=== PATIENT | female | born 1990 | race Caucasian/White ===

== ENCOUNTER → 2017-06-06 | Outpatient (CLI) | payer MEDICAID, OTHER ==
[2017-06-06 11:13] LABS: BASO % 0.5 % (0.0-1.0); EOS # 0.1 10^3/uL (0.0-0.50); EOS % 2.7 % (0.0-3.0); HEMATOCRIT 36.1 % (36.0-47.0); HEMOGLOBIN 12.1 g/dl (12.0-16.0); IMMATURE GRANULOCYTE % 0.2 % (0-0); LYMPH # 2.1 10^3/uL (1.5-6.5); LYMPH % 51.1 % (24.0-44.0); MEAN CORPUSCULAR HEMOGLOBIN 31.3 pg (27.0-33.0); MEAN CORPUSCULAR HGB CONC 33.5 g/dl (32.0-36.5); MEAN CORPUSCULAR VOLUME 93.5 fl (80.0-96.0); MONO # 0.3 10^3/uL (0.0-0.8); MONO % 6.7 % (0.0-5.0); NEUTROPHILS # 1.6 10^3/uL (1.8-7.7); NEUTROPHILS % 38.8 % (36.0-66.0); PLATELET COUNT, AUTOMATED 199 10^3/uL (150-450); RED BLOOD COUNT 3.86 10^6/uL (4.00-5.40); RED CELL DISTRIBUTION WIDTH 14.3 % (11.5-14.5)
[2017-06-06 11:20] LABS: AMORPHOUS SEDIMENT MODERATE (NEGATIVE); APPEARANCE, URINE TURBID (CLEAR); BACTERIA, URINE AUTO NEGATIVE (NEGATIVE); BILIRUBIN, URINE AUTO NEGATIVE (NEGATIVE); BLOOD, URINE BLOOD NEGATIVE (NEGATIVE); COLOR, URINE YELLOW (YELLOW); GLUCOSE, URINE (UA) AUTO NEGATIVE (NEGATIVE); KETONE, URINE AUTO NEGATIVE (NEGATIVE); LEUKOCYTE ESTERASE, URINE AUTO NEGATIVE (NEGATIVE); NITRITE, URINE AUTO NEGATIVE (NEGATIVE); PROTEIN, URINE AUTO NEGATIVE (NEGATIVE); RBC, URINE AUTO 2 /HPF (0-3); SPECIFIC GRAVITY URINE AUTO 1.015 (1.002-1.035); SQUAMOUS EPITHELIAL CELL UR AU 2 /HPF (0-6); UROBILINOGEN, URINE AUTO 0.2 mg/dL (0.0-2.0); WBC, URINE AUTO 1 /HPF (0-3)
[2017-06-06 11:34] LABS: ALBUMIN 3.9 GM/DL (3.2-5.2); ALBUMIN/GLOBULIN RATIO 1.05 (1.00-1.93); ALKALINE PHOSPHATASE 94 U/L (45-117); ALT/SGPT 49 U/L (12-78); ANION GAP 7 MEQ/L (8-16); AST/SGOT 24 U/L (7-37); BILIRUBIN,TOTAL 0.5 MG/DL (0.2-1.0); BLOOD UREA NITROGEN 16 MG/DL (7-18); CARBON DIOXIDE LEVEL 27 MEQ/L (21-32); CHLORIDE LEVEL 109 MEQ/L (98-107); CREATININE FOR GFR 0.63 MG/DL (0.55-1.30); GLOMERULAR FILTRATION RATE > 60.0 (>60); GLUCOSE, FASTING 76 MG/DL (70-100); SODIUM LEVEL 143 MEQ/L (136-145); TOTAL PROTEIN 7.6 GM/DL (6.4-8.2)
[2017-06-06 11:55] LABS: HEPATITIS B SURFACE ANTIGEN NEGATIVE (NEGATIVE)
[2017-06-06 12:21] LABS: HEPATITIS B CORE ANTIBODY IGM NEGATIVE (NEGATIVE)
[2017-06-06 12:25] LABS: HEPATITIS A ANTIBODY IGM NEGATIVE (NEGATIVE)
[2017-06-06 12:48] LABS: HEPATITIS C VIRUS ABY INDEX > 11.0 INDEX (<0.8)
== END ==
LOC: M LAB 09:53
DX: Z79.891 Long term (current) use of opiate analgesic (principal)
CPT/HCPCS: 80053

== ENCOUNTER 2017-07-01 18:03 | Inpatient (IN) | payer MEDICAID ==
[2017-07-01 18:37] LABS: HEMATOCRIT 35.5 % (36.0-47.0); MEAN CORPUSCULAR HEMOGLOBIN 32.1 pg (27.0-33.0); MEAN CORPUSCULAR HGB CONC 33.8 g/dl (32.0-36.5); MEAN CORPUSCULAR VOLUME 94.9 fl (80.0-96.0); PLATELET COUNT, AUTOMATED 191 10^3/uL (150-450); RED BLOOD COUNT 3.74 10^6/uL (4.00-5.40); RED CELL DISTRIBUTION WIDTH 13.2 % (11.5-14.5); WHITE BLOOD COUNT 4.1 10^3/uL (4.0-10.0)
[2017-07-01 18:49] LABS: CONTROL LINE HCG INT CTR LINE PRESENT; HCG, SERUM QUALITATIVE NEGATIVE (NEGATIVE)
[2017-07-01 18:55] LABS: AMPHETAMINES LEVEL URINE NEGATIVE (NEGATIVE); BARBITURATES URINE NEGATIVE (NEGATIVE); BENZODIAZEPINES URINE NEGATIVE (NEGATIVE); CANNABINOIDS URINE NEGATIVE (NEGATIVE); COCAINE METABOLITE URINE NEGATIVE (NEGATIVE); METHADONE URINE NEGATIVE (NEGATIVE); OPIATES URINE NEGATIVE (NEGATIVE); PHENCYCLIDINE URINE NEGATIVE (NEGATIVE)
[2017-07-01 19:06] LABS: ALBUMIN 3.9 GM/DL (3.2-5.2); ALKALINE PHOSPHATASE 122 U/L (45-117); ALT/SGPT 191 U/L (12-78); ANION GAP 6 MEQ/L (8-16); AST/SGOT 77 U/L (7-37); BILIRUBIN,DIRECT 0.1 MG/DL (0.0-0.2); BILIRUBIN,TOTAL 0.4 MG/DL (0.2-1.0); BLOOD UREA NITROGEN 16 MG/DL (7-18); CALCIUM LEVEL 8.4 MG/DL (8.5-10.1); CARBON DIOXIDE LEVEL 26 MEQ/L (21-32); CHLORIDE LEVEL 111 MEQ/L (98-107); CREATININE FOR GFR 0.69 MG/DL (0.55-1.30); ETHYL ALCOHOL (ETHANOL) < 0.003 % (0.000-0.010); GLOMERULAR FILTRATION RATE > 60.0 (>60); GLUCOSE, FASTING 80 MG/DL (70-100); POTASSIUM SERUM 3.5 MEQ/L (3.5-5.1); SALICYLATE LEVEL < 1.7 MG/DL (5.0-30.0); SODIUM LEVEL 143 MEQ/L (136-145); TOTAL PROTEIN 7.8 GM/DL (6.4-8.2)
[2017-07-01 19:07] LABS: ACETAMINOPHEN LEVEL < 2.0 UG/ML (10.0-30.0)
[2017-07-01] MEDS ORDERED: MOM 30ML SUSPENSION UDC PO (22:30)
[2017-07-01] MEDS ORDERED: MAALOX 30 ML SUSP *UDC PO (22:30)
[2017-07-01] MEDS: IBUPROFEN 400 MG TAB PO (22:33)
[2017-07-01] MEDS: TOPIRAMATE (TopAMAX) 100 MG TAB PO (22:34)
[2017-07-01] MEDS: PRAZOSIN 1 MG CAP PO (22:34)
[2017-07-01] MEDS: traZODone 50 MG TAB PO (22:34)
[2017-07-01] MEDS: BENZTROPINE 0.5 MG TAB PO (22:35)
[2017-07-02] MEDS: BENZTROPINE 0.5 MG TAB PO ×2 (08:25→22:34)
[2017-07-02] MEDS: ARIPiprazole 10 MG TAB PO (08:25)
[2017-07-02] MEDS: PARoxetine 20 MG TAB PO (08:25)
[2017-07-02] MEDS: PROPRANOLOL 10 MG TAB PO ×2 (08:25→22:35)
[2017-07-02] MEDS: NICOTINE 21MG/24HR 1 EA TRANSDERMAL TD (08:26)
[2017-07-02] MEDS: rOPINIRole 1MG TAB PO ×2 (13:22→22:35)
[2017-07-02] MEDS: MULTIVITAMINS/MINERALS THERAP 1 TAB PO (13:23)
[2017-07-02 14:12] LABS: ALBUMIN 3.9 GM/DL (3.2-5.2); ALBUMIN/GLOBULIN RATIO 0.98 (1.00-1.93); ALKALINE PHOSPHATASE 117 U/L (45-117); ALT/SGPT 209 U/L (12-78); ANION GAP 7 MEQ/L (8-16); AST/SGOT 90 U/L (7-37); BILIRUBIN,DIRECT 0.1 MG/DL (0.0-0.2); BILIRUBIN,TOTAL 0.7 MG/DL (0.2-1.0); BLOOD UREA NITROGEN 15 MG/DL (7-18); CALCIUM LEVEL 8.9 MG/DL (8.5-10.1); CARBON DIOXIDE LEVEL 26 MEQ/L (21-32); CHLORIDE LEVEL 108 MEQ/L (98-107); CREATININE FOR GFR 0.73 MG/DL (0.55-1.30); GLOMERULAR FILTRATION RATE > 60.0 (>60); GLUCOSE, FASTING 89 MG/DL (70-100); POTASSIUM SERUM 4.2 MEQ/L (3.5-5.1); SODIUM LEVEL 141 MEQ/L (136-145); TOTAL PROTEIN 7.9 GM/DL (6.4-8.2)
[2017-07-02] MEDS ORDERED: traZODone 50 MG TAB PO (14:30)
[2017-07-02] MEDS: QUEtiapine FUMARATE 100 MG TAB PO (22:34)
[2017-07-02] MEDS: TOPIRAMATE (TopAMAX) 25 MG TAB PO (22:35)
[2017-07-02] MEDS: PRAZOSIN 1 MG CAP PO (22:36)
[2017-07-02] MEDS: IBUPROFEN 400 MG TAB PO (22:37)
[2017-07-03 07:50] LABS: ALBUMIN 3.7 GM/DL (3.2-5.2); ALBUMIN/GLOBULIN RATIO 0.95 (1.00-1.93); ALKALINE PHOSPHATASE 110 U/L (45-117); ALT/SGPT 190 U/L (12-78); ANION GAP 10 MEQ/L (8-16); AST/SGOT 76 U/L (7-37); BILIRUBIN,TOTAL 0.6 MG/DL (0.2-1.0); BLOOD UREA NITROGEN 17 MG/DL (7-18); CALCIUM LEVEL 8.3 MG/DL (8.5-10.1); CARBON DIOXIDE LEVEL 23 MEQ/L (21-32); CHLORIDE LEVEL 110 MEQ/L (98-107); CREATININE FOR GFR 0.76 MG/DL (0.55-1.30); GLOMERULAR FILTRATION RATE > 60.0 (>60); GLUCOSE, FASTING 94 MG/DL (70-100); POTASSIUM SERUM 3.5 MEQ/L (3.5-5.1); SODIUM LEVEL 143 MEQ/L (136-145); TOTAL PROTEIN 7.6 GM/DL (6.4-8.2)
[2017-07-03] MEDS: PROPRANOLOL 10 MG TAB PO ×2 (08:11→21:43)
[2017-07-03] MEDS: rOPINIRole 1MG TAB PO ×2 (08:11→21:41)
[2017-07-03] MEDS: NICOTINE 21MG/24HR 1 EA TRANSDERMAL TD (08:11)
[2017-07-03] MEDS: MULTIVITAMINS/MINERALS THERAP 1 TAB PO (08:12)
[2017-07-03] MEDS: BENZTROPINE 0.5 MG TAB PO ×2 (08:12→21:41)
[2017-07-03] MEDS: PARoxetine 20 MG TAB PO (08:12)
[2017-07-03] MEDS ORDERED: traZODone 50 MG TAB PO (10:45)
[2017-07-03] MEDS: VITAMIN B COMPLEX/VIT C CAP PO (12:05)
[2017-07-03] MEDS: hydrOXYzine 25 MG TAB PO (14:26)
[2017-07-03] MEDS: QUEtiapine FUMARATE 50 MG TAB PO (21:42)
[2017-07-03] MEDS: TOPIRAMATE (TopAMAX) 25 MG TAB PO (21:42)
[2017-07-03] MEDS: traZODone 50 MG TAB PO (21:42)
[2017-07-03] MEDS: PRAZOSIN 1 MG CAP PO (21:43)
[2017-07-04] MEDS: VITAMIN B COMPLEX/VIT C CAP PO (08:30)
[2017-07-04] MEDS: rOPINIRole 1MG TAB PO ×2 (08:30→21:17)
[2017-07-04] MEDS: MULTIVITAMINS/MINERALS THERAP 1 TAB PO (08:30)
[2017-07-04] MEDS: NICOTINE 21MG/24HR 1 EA TRANSDERMAL TD (08:30)
[2017-07-04] MEDS: BENZTROPINE 0.5 MG TAB PO ×2 (08:30→21:17)
[2017-07-04] MEDS: PROPRANOLOL 10 MG TAB PO ×3 (08:31→21:18)
[2017-07-04] MEDS: PARoxetine 20 MG TAB PO (08:31)
[2017-07-04] MEDS: hydrOXYzine 25 MG TAB PO ×2 (09:43→14:09)
[2017-07-04] MEDS: IBUPROFEN 400 MG TAB PO (14:09)
[2017-07-04] MEDS: LURASIDONE HCL 40 MG TAB (LATUDA) PO (17:59)
[2017-07-04] MEDS: QUEtiapine FUMARATE 50 MG TAB PO (21:17)
[2017-07-04] MEDS: PRAZOSIN 1 MG CAP PO (21:17)
[2017-07-04] MEDS: traZODone 50 MG TAB PO (21:18)
[2017-07-04] MEDS: TOPIRAMATE (TopAMAX) 25 MG TAB PO (21:20)
[2017-07-05 06:38] LABS: HEMATOCRIT 34.3 % (36.0-47.0); HEMOGLOBIN 11.9 g/dl (12.0-16.0); MEAN CORPUSCULAR HEMOGLOBIN 32.5 pg (27.0-33.0); MEAN CORPUSCULAR HGB CONC 34.7 g/dl (32.0-36.5); MEAN CORPUSCULAR VOLUME 93.7 fl (80.0-96.0); PLATELET COUNT, AUTOMATED 182 10^3/uL (150-450); RED BLOOD COUNT 3.66 10^6/uL (4.00-5.40); RED CELL DISTRIBUTION WIDTH 13.1 % (11.5-14.5); WHITE BLOOD COUNT 4.6 10^3/uL (4.0-10.0)
[2017-07-05 06:52] LABS: AMMONIA 40 uMOL/L (<32)
[2017-07-05] MEDS: hydrOXYzine 25 MG TAB PO (06:56)
[2017-07-05 07:13] LABS: ALBUMIN 3.6 GM/DL (3.2-5.2); ALBUMIN/GLOBULIN RATIO 0.97 (1.00-1.93); ALKALINE PHOSPHATASE 108 U/L (45-117); ALT/SGPT 190 U/L (12-78); ANION GAP 10 MEQ/L (8-16); AST/SGOT 73 U/L (7-37); BILIRUBIN,TOTAL 0.4 MG/DL (0.2-1.0); BLOOD UREA NITROGEN 20 MG/DL (7-18); CALCIUM LEVEL 8.7 MG/DL (8.5-10.1); CARBON DIOXIDE LEVEL 23 MEQ/L (21-32); CHLORIDE LEVEL 110 MEQ/L (98-107); CREATININE FOR GFR 0.83 MG/DL (0.55-1.30); GLOMERULAR FILTRATION RATE > 60.0 (>60); GLUCOSE, FASTING 124 MG/DL (70-100); POTASSIUM SERUM 3.8 MEQ/L (3.5-5.1); SODIUM LEVEL 143 MEQ/L (136-145); TOTAL PROTEIN 7.3 GM/DL (6.4-8.2)
[2017-07-05] MEDS: BENZTROPINE 0.5 MG TAB PO ×2 (08:36→21:21)
[2017-07-05] MEDS: PARoxetine 20 MG TAB PO (08:36)
[2017-07-05] MEDS: PROPRANOLOL 10 MG TAB PO ×3 (08:36→21:22)
[2017-07-05] MEDS: NICOTINE 21MG/24HR 1 EA TRANSDERMAL TD (08:36)
[2017-07-05] MEDS: MULTIVITAMINS/MINERALS THERAP 1 TAB PO (08:36)
[2017-07-05] MEDS: rOPINIRole 1MG TAB PO ×2 (08:46→21:23)
[2017-07-05] MEDS: VITAMIN B COMPLEX/VIT C CAP PO (08:46)
[2017-07-05] MEDS: LURASIDONE HCL 40 MG TAB (LATUDA) PO (17:56)
[2017-07-05] MEDS: PRAZOSIN 1 MG CAP PO (21:22)
[2017-07-05] MEDS: traZODone 50 MG TAB PO (21:47)
[2017-07-06] MEDS: BENZTROPINE 0.5 MG TAB PO ×2 (08:10→21:13)
[2017-07-06] MEDS: NICOTINE 21MG/24HR 1 EA TRANSDERMAL TD (08:10)
[2017-07-06] MEDS: MULTIVITAMINS/MINERALS THERAP 1 TAB PO (08:10)
[2017-07-06] MEDS: PARoxetine 20 MG TAB PO (08:10)
[2017-07-06] MEDS: VITAMIN B COMPLEX/VIT C CAP PO (08:10)
[2017-07-06] MEDS: rOPINIRole 1MG TAB PO ×2 (08:10→21:13)
[2017-07-06] MEDS: PROPRANOLOL 10 MG TAB PO ×3 (08:11→21:14)
[2017-07-06] MEDS: hydrOXYzine 25 MG TAB PO (12:30)
[2017-07-06] MEDS: LURASIDONE HCL 40 MG TAB (LATUDA) PO (17:56)
[2017-07-06] MEDS: QUEtiapine FUMARATE 50 MG TAB PO (21:14)
[2017-07-06] MEDS: IBUPROFEN 400 MG TAB PO (21:14)
[2017-07-06] MEDS: traZODone 100 MG TAB PO (21:14)
[2017-07-06] MEDS: PRAZOSIN 1 MG CAP PO (21:14)
[2017-07-07] MEDS: IBUPROFEN 400 MG TAB PO (08:10)
[2017-07-07] MEDS: rOPINIRole 1MG TAB PO ×2 (08:11→21:25)
[2017-07-07] MEDS: BENZTROPINE 0.5 MG TAB PO ×2 (08:11→21:25)
[2017-07-07] MEDS: PARoxetine 20 MG TAB PO (08:11)
[2017-07-07] MEDS: PROPRANOLOL 10 MG TAB PO ×3 (08:11→21:25)
[2017-07-07] MEDS: MULTIVITAMINS/MINERALS THERAP 1 TAB PO (08:11)
[2017-07-07] MEDS: VITAMIN B COMPLEX/VIT C CAP PO (08:12)
[2017-07-07] MEDS: NICOTINE 21MG/24HR 1 EA TRANSDERMAL TD (08:12)
[2017-07-07] MEDS: hydrOXYzine 25 MG TAB PO (18:03)
[2017-07-07] MEDS: LURASIDONE HCL 40 MG TAB (LATUDA) PO (18:03)
[2017-07-07] MEDS: PRAZOSIN 1 MG CAP PO (21:25)
[2017-07-07] MEDS: traZODone 100 MG TAB PO (21:25)
[2017-07-07] MEDS: QUEtiapine FUMARATE 50 MG TAB PO (21:25)
[2017-07-08] MEDS: PARoxetine 20 MG TAB PO (08:09)
[2017-07-08] MEDS: MULTIVITAMINS/MINERALS THERAP 1 TAB PO (08:09)
[2017-07-08] MEDS: PROPRANOLOL 10 MG TAB PO ×3 (08:09→21:45)
[2017-07-08] MEDS: NICOTINE 21MG/24HR 1 EA TRANSDERMAL TD (08:09)
[2017-07-08] MEDS: VITAMIN B COMPLEX/VIT C CAP PO (08:10)
[2017-07-08] MEDS: rOPINIRole 1MG TAB PO ×2 (08:10→21:45)
[2017-07-08] MEDS: BENZTROPINE 0.5 MG TAB PO ×2 (08:11→21:45)
[2017-07-08] MEDS: IBUPROFEN 400 MG TAB PO (08:14)
[2017-07-08] MEDS: LURASIDONE HCL 40 MG TAB (LATUDA) PO (17:53)
[2017-07-08] MEDS: QUEtiapine FUMARATE 50 MG TAB PO (21:45)
[2017-07-08] MEDS: PRAZOSIN 1 MG CAP PO (21:45)
[2017-07-08] MEDS: traZODone 100 MG TAB PO (21:45)
[2017-07-09] MEDS: rOPINIRole 1MG TAB PO ×2 (08:03→21:36)
[2017-07-09] MEDS: PARoxetine 20 MG TAB PO (08:03)
[2017-07-09] MEDS: NICOTINE 21MG/24HR 1 EA TRANSDERMAL TD (08:03)
[2017-07-09] MEDS: BENZTROPINE 0.5 MG TAB PO ×2 (08:03→21:36)
[2017-07-09] MEDS: VITAMIN B COMPLEX/VIT C CAP PO (08:03)
[2017-07-09] MEDS: MULTIVITAMINS/MINERALS THERAP 1 TAB PO (08:03)
[2017-07-09] MEDS: PROPRANOLOL 10 MG TAB PO ×3 (08:03→21:37)
[2017-07-09] MEDS: hydrOXYzine 25 MG TAB PO (15:37)
[2017-07-09] MEDS: LURASIDONE HCL 40 MG TAB (LATUDA) PO (17:58)
[2017-07-09] MEDS: IBUPROFEN 400 MG TAB PO (21:37)
[2017-07-09] MEDS: QUEtiapine FUMARATE 50 MG TAB PO (21:37)
[2017-07-09] MEDS: traZODone 100 MG TAB PO (21:37)
[2017-07-09] MEDS: PRAZOSIN 1 MG CAP PO (21:38)
[2017-07-10 07:02] LABS: BASO % 0.4 % (0.0-1.0); EOS # 0.2 10^3/uL (0.0-0.50); EOS % 4.2 % (0.0-3.0); HEMATOCRIT 34.2 % (36.0-47.0); HEMOGLOBIN 11.7 g/dl (12.0-16.0); IMMATURE GRANULOCYTE % 0.2 % (0-3.0); LYMPH # 2.4 10^3/uL (1.5-6.5); LYMPH % 53.4 % (24.0-44.0); MEAN CORPUSCULAR HEMOGLOBIN 32.8 pg (27.0-33.0); MEAN CORPUSCULAR HGB CONC 34.2 g/dl (32.0-36.5); MEAN CORPUSCULAR VOLUME 95.8 fl (80.0-96.0); MONO # 0.3 10^3/uL (0.0-0.8); MONO % 7.1 % (0.0-5.0); NEUTROPHILS # 1.6 10^3/uL (1.8-7.7); NEUTROPHILS % 34.7 % (36.0-66.0); PLATELET COUNT, AUTOMATED 183 10^3/uL (150-450); RED BLOOD COUNT 3.57 10^6/uL (4.00-5.40); RED CELL DISTRIBUTION WIDTH 12.8 % (11.5-14.5); WHITE BLOOD COUNT 4.5 10^3/uL (4.0-10.0)
[2017-07-10 07:23] LABS: ALBUMIN 3.3 GM/DL (3.2-5.2); ALKALINE PHOSPHATASE 95 U/L (45-117); ALT/SGPT 140 U/L (12-78); ANION GAP 7 MEQ/L (8-16); AST/SGOT 47 U/L (7-37); BILIRUBIN,TOTAL 0.4 MG/DL (0.2-1.0); BLOOD UREA NITROGEN 15 MG/DL (7-18); CALCIUM LEVEL 8.2 MG/DL (8.5-10.1); CARBON DIOXIDE LEVEL 27 MEQ/L (21-32); CHLORIDE LEVEL 109 MEQ/L (98-107); CREATININE FOR GFR 0.71 MG/DL (0.55-1.30); GLOMERULAR FILTRATION RATE > 60.0 (>60); GLUCOSE, FASTING 109 MG/DL (70-100); POTASSIUM SERUM 3.9 MEQ/L (3.5-5.1); SODIUM LEVEL 143 MEQ/L (136-145); TOTAL PROTEIN 6.6 GM/DL (6.4-8.2)
[2017-07-10] MEDS: rOPINIRole 1MG TAB PO ×2 (08:40→23:06)
[2017-07-10] MEDS: PROPRANOLOL 10 MG TAB PO ×3 (08:41→23:06)
[2017-07-10] MEDS: PARoxetine 20 MG TAB PO (08:41)
[2017-07-10] MEDS: MULTIVITAMINS/MINERALS THERAP 1 TAB PO (08:41)
[2017-07-10] MEDS: BENZTROPINE 0.5 MG TAB PO ×2 (09:05→23:06)
[2017-07-10] MEDS: VITAMIN B COMPLEX/VIT C CAP PO (09:06)
[2017-07-10] MEDS: NICOTINE 21MG/24HR 1 EA TRANSDERMAL TD (09:08)
[2017-07-10 12:01] LABS: CHOLESTEROL LEVEL 187 MG/DL (<200); CHOLESTEROL RISK RATIO 4.452 (<5); HDL CHOLESTEROL 42 MG/DL (>40); NON-HDL-C 145 MG/DL; TRIGLYCERIDES LEVEL 370 MG/DL (<150)
[2017-07-10 12:19] LABS: ESTIMATED AVERAGE GLUCOSE 82 MG/DL (60-110); HEMOGLOBIN A1c 4.5 %
[2017-07-10] MEDS: hydrOXYzine 25 MG TAB PO (13:20)
[2017-07-10] MEDS: LURASIDONE 20 MG TAB (LATUDA) PO (17:48)
[2017-07-10] MEDS: traZODone 100 MG TAB PO (23:05)
[2017-07-10] MEDS: PRAZOSIN 1 MG CAP PO (23:06)
[2017-07-10] MEDS: QUEtiapine FUMARATE 50 MG TAB PO (23:06)
[2017-07-11] MEDS: PROPRANOLOL 10 MG TAB PO ×3 (09:00→21:23)
[2017-07-11] MEDS: NICOTINE 21MG/24HR 1 EA TRANSDERMAL TD (09:06)
[2017-07-11] MEDS: VITAMIN B COMPLEX/VIT C CAP PO (09:06)
[2017-07-11] MEDS: MULTIVITAMINS/MINERALS THERAP 1 TAB PO (09:07)
[2017-07-11] MEDS: IBUPROFEN 400 MG TAB PO (09:07)
[2017-07-11] MEDS: BENZTROPINE 0.5 MG TAB PO ×2 (09:07→21:22)
[2017-07-11] MEDS: rOPINIRole 1MG TAB PO ×2 (09:07→21:22)
[2017-07-11] MEDS: LURASIDONE 20 MG TAB (LATUDA) PO (17:59)
[2017-07-11] MEDS: QUEtiapine FUMARATE 50 MG TAB PO (21:22)
[2017-07-11] MEDS: PRAZOSIN 1 MG CAP PO (21:24)
[2017-07-12] MEDS: VITAMIN B COMPLEX/VIT C CAP PO (09:05)
[2017-07-12] MEDS: IBUPROFEN 400 MG TAB PO ×2 (09:06→15:59)
[2017-07-12] MEDS: rOPINIRole 1MG TAB PO ×2 (09:06→21:21)
[2017-07-12] MEDS: NICOTINE 21MG/24HR 1 EA TRANSDERMAL TD (09:06)
[2017-07-12] MEDS: BENZTROPINE 0.5 MG TAB PO ×2 (09:06→21:21)
[2017-07-12] MEDS: MULTIVITAMINS/MINERALS THERAP 1 TAB PO (09:06)
[2017-07-12] MEDS: PROPRANOLOL 10 MG TAB PO ×3 (09:07→21:22)
[2017-07-12] MEDS: hydrOXYzine 25 MG TAB PO ×2 (16:00→23:02)
[2017-07-12] MEDS: LURASIDONE 20 MG TAB (LATUDA) PO (17:44)
[2017-07-12] MEDS: PRAZOSIN 1 MG CAP PO (21:22)
[2017-07-12] MEDS: QUEtiapine FUMARATE 50 MG TAB PO (21:22)
[2017-07-13 08:16] LABS: ALBUMIN 3.5 GM/DL (3.2-5.2); ALBUMIN/GLOBULIN RATIO 1.03 (1.00-1.93); ALKALINE PHOSPHATASE 94 U/L (45-117); ALT/SGPT 122 U/L (12-78); ANION GAP 9 MEQ/L (8-16); AST/SGOT 43 U/L (7-37); BILIRUBIN,TOTAL 0.4 MG/DL (0.2-1.0); BLOOD UREA NITROGEN 10 MG/DL (7-18); CALCIUM LEVEL 8.8 MG/DL (8.5-10.1); CARBON DIOXIDE LEVEL 26 MEQ/L (21-32); CHLORIDE LEVEL 107 MEQ/L (98-107); CREATININE FOR GFR 0.73 MG/DL (0.55-1.30); GLOMERULAR FILTRATION RATE > 60.0 (>60); GLUCOSE, FASTING 101 MG/DL (70-100); POTASSIUM SERUM 4.1 MEQ/L (3.5-5.1); SODIUM LEVEL 142 MEQ/L (136-145); TOTAL PROTEIN 6.9 GM/DL (6.4-8.2); TRIGLYCERIDES LEVEL 373 MG/DL (<150)
[2017-07-13] MEDS: NICOTINE 21MG/24HR 1 EA TRANSDERMAL TD (08:46)
[2017-07-13] MEDS: PROPRANOLOL 10 MG TAB PO ×3 (08:46→20:52)
[2017-07-13] MEDS: MULTIVITAMINS/MINERALS THERAP 1 TAB PO (08:46)
[2017-07-13] MEDS: BENZTROPINE 0.5 MG TAB PO ×2 (08:46→20:52)
[2017-07-13] MEDS: rOPINIRole 1MG TAB PO ×2 (08:47→20:52)
[2017-07-13] MEDS: VITAMIN B COMPLEX/VIT C CAP PO (08:47)
[2017-07-13] MEDS: LURASIDONE 20 MG TAB (LATUDA) PO (17:38)
[2017-07-13] MEDS: QUEtiapine FUMARATE 50 MG TAB PO (20:52)
[2017-07-13] MEDS: PRAZOSIN 1 MG CAP PO (20:53)
[2017-07-14] MEDS: rOPINIRole 1MG TAB PO ×2 (08:29→21:56)
[2017-07-14] MEDS: PROPRANOLOL 10 MG TAB PO ×3 (08:29→21:56)
[2017-07-14] MEDS: VITAMIN B COMPLEX/VIT C CAP PO (08:29)
[2017-07-14] MEDS: NICOTINE 21MG/24HR 1 EA TRANSDERMAL TD (08:29)
[2017-07-14] MEDS: MULTIVITAMINS/MINERALS THERAP 1 TAB PO (08:29)
[2017-07-14] MEDS: BENZTROPINE 0.5 MG TAB PO ×2 (08:29→21:55)
[2017-07-14] MEDS: IBUPROFEN 400 MG TAB PO ×2 (16:22→21:58)
[2017-07-14] MEDS: LURASIDONE 20 MG TAB (LATUDA) PO (17:14)
[2017-07-14] MEDS: PRAZOSIN 1 MG CAP PO (21:56)
[2017-07-14] MEDS: QUEtiapine FUMARATE 50 MG TAB PO (21:56)
[2017-07-15] MEDS: NICOTINE 21MG/24HR 1 EA TRANSDERMAL TD (08:45)
[2017-07-15] MEDS: rOPINIRole 1MG TAB PO ×2 (08:47→21:38)
[2017-07-15] MEDS: VITAMIN B COMPLEX/VIT C CAP PO (08:47)
[2017-07-15] MEDS: PROPRANOLOL 10 MG TAB PO ×3 (08:47→21:38)
[2017-07-15] MEDS: MULTIVITAMINS/MINERALS THERAP 1 TAB PO (08:48)
[2017-07-15] MEDS: BENZTROPINE 0.5 MG TAB PO ×2 (08:48→21:38)
[2017-07-15] MEDS: LURASIDONE 20 MG TAB (LATUDA) PO (17:18)
[2017-07-15] MEDS: PRAZOSIN 1 MG CAP PO (21:37)
[2017-07-15] MEDS: QUEtiapine FUMARATE 50 MG TAB PO (21:38)
[2017-07-15] MEDS: IBUPROFEN 400 MG TAB PO (21:40)
[2017-07-16] MEDS: MULTIVITAMINS/MINERALS THERAP 1 TAB PO (09:35)
[2017-07-16] MEDS: BENZTROPINE 0.5 MG TAB PO ×2 (09:35→21:34)
[2017-07-16] MEDS: VITAMIN B COMPLEX/VIT C CAP PO (09:36)
[2017-07-16] MEDS: rOPINIRole 1MG TAB PO ×2 (09:36→21:34)
[2017-07-16] MEDS: NICOTINE 21MG/24HR 1 EA TRANSDERMAL TD (09:36)
[2017-07-16] MEDS: PROPRANOLOL 10 MG TAB PO ×3 (09:37→21:35)
[2017-07-16] MEDS: PILL CUTTER/CRUSHER XX (17:21)
[2017-07-16] MEDS: ONDANSETRON 4 MG ORAL DISINTEGRATING TAB (S0181) PO (17:22)
[2017-07-16] MEDS: LURASIDONE 20 MG TAB (LATUDA) PO (17:46)
[2017-07-16] MEDS: PRAZOSIN 1 MG CAP PO (21:35)
[2017-07-17 08:49] LABS: ALBUMIN 3.6 GM/DL (3.2-5.2); ALBUMIN/GLOBULIN RATIO 0.97 (1.00-1.93); ALKALINE PHOSPHATASE 97 U/L (45-117); ALT/SGPT 108 U/L (12-78); ANION GAP 6 MEQ/L (8-16); AST/SGOT 39 U/L (7-37); BILIRUBIN,TOTAL 0.5 MG/DL (0.2-1.0); BLOOD UREA NITROGEN 16 MG/DL (7-18); CALCIUM LEVEL 8.5 MG/DL (8.5-10.1); CARBON DIOXIDE LEVEL 26 MEQ/L (21-32); CHLORIDE LEVEL 108 MEQ/L (98-107); CREATININE FOR GFR 0.63 MG/DL (0.55-1.30); GLOMERULAR FILTRATION RATE > 60.0 (>60); GLUCOSE, FASTING 89 MG/DL (70-100); POTASSIUM SERUM 4.3 MEQ/L (3.5-5.1); SODIUM LEVEL 140 MEQ/L (136-145); TOTAL PROTEIN 7.3 GM/DL (6.4-8.2)
[2017-07-17] MEDS: BENZTROPINE 0.5 MG TAB PO ×2 (09:15→21:07)
[2017-07-17] MEDS: PROPRANOLOL 10 MG TAB PO ×3 (09:15→21:07)
[2017-07-17] MEDS: MULTIVITAMINS/MINERALS THERAP 1 TAB PO (09:15)
[2017-07-17] MEDS: NICOTINE 21MG/24HR 1 EA TRANSDERMAL TD (09:16)
[2017-07-17] MEDS: rOPINIRole 1MG TAB PO ×2 (09:16→21:07)
[2017-07-17] MEDS: VITAMIN B COMPLEX/VIT C CAP PO (09:16)
[2017-07-17] MEDS: ONDANSETRON 4 MG ORAL DISINTEGRATING TAB (S0181) PO (10:55)
[2017-07-17] MEDS: IBUPROFEN 400 MG TAB PO ×2 (10:55→21:08)
[2017-07-17] MEDS: PILL CUTTER/CRUSHER XX (10:56)
[2017-07-17] MEDS: LURASIDONE 20 MG TAB (LATUDA) PO (17:59)
[2017-07-17] MEDS: QUEtiapine FUMARATE 50 MG TAB PO (21:06)
[2017-07-17] MEDS: PRAZOSIN 1 MG CAP PO (21:07)
[2017-07-18] MEDS: PROPRANOLOL 10 MG TAB PO (09:00)
[2017-07-18] MEDS: NICOTINE 21MG/24HR 1 EA TRANSDERMAL TD (09:14)
[2017-07-18] MEDS: BENZTROPINE 0.5 MG TAB PO ×2 (09:14→22:33)
[2017-07-18] MEDS: VITAMIN B COMPLEX/VIT C CAP PO (09:14)
[2017-07-18] MEDS: rOPINIRole 1MG TAB PO ×2 (09:14→22:32)
[2017-07-18] MEDS: MULTIVITAMINS/MINERALS THERAP 1 TAB PO (09:14)
[2017-07-18] MEDS: LURASIDONE 20 MG TAB (LATUDA) PO (17:51)
[2017-07-18] MEDS: QUEtiapine FUMARATE 50 MG TAB PO (22:31)
[2017-07-18] MEDS: PRAZOSIN 1 MG CAP PO (22:32)
[2017-07-19] MEDS: VITAMIN B COMPLEX/VIT C CAP PO (08:56)
[2017-07-19] MEDS: BENZTROPINE 0.5 MG TAB PO ×2 (08:56→23:01)
[2017-07-19] MEDS: MULTIVITAMINS/MINERALS THERAP 1 TAB PO (08:56)
[2017-07-19] MEDS: NICOTINE 21MG/24HR 1 EA TRANSDERMAL TD (08:56)
[2017-07-19] MEDS: rOPINIRole 1MG TAB PO ×2 (08:56→23:01)
[2017-07-19] MEDS: LURASIDONE 20 MG TAB (LATUDA) PO (17:38)
[2017-07-19] MEDS: hydrOXYzine 25 MG TAB PO (20:04)
[2017-07-19] MEDS: QUEtiapine FUMARATE 50 MG TAB PO (23:01)
[2017-07-19] MEDS: IBUPROFEN 400 MG TAB PO (23:01)
[2017-07-19] MEDS: PRAZOSIN 1 MG CAP PO (23:03)
[2017-07-20] MEDS: rOPINIRole 1MG TAB PO (09:27)
[2017-07-20] MEDS: MULTIVITAMINS/MINERALS THERAP 1 TAB PO (09:27)
[2017-07-20] MEDS: BENZTROPINE 0.5 MG TAB PO (09:27)
[2017-07-20] MEDS: VITAMIN B COMPLEX/VIT C CAP PO (09:27)
[2017-07-20] MEDS: NICOTINE 21MG/24HR 1 EA TRANSDERMAL TD (09:27)
== END 2017-07-20 11:27 | DRG 755 ==
LOC: M ED 18:03 → M ED INP 20:02 → M PSY 21:00
DX: F43.11 Post-traumatic stress disorder, acute (principal); F41.9 Anxiety disorder, unspecified; F60.89 Other specific personality disorders; G89.29 Other chronic pain; M79.7 Fibromyalgia; M06.9 Rheumatoid arthritis, unspecified; B18.2 Chronic viral hepatitis C; E83.42 Hypomagnesemia; R51 Headache; F31.5 Bipolar disorder, current episode depressed, severe, with psychotic features; F17.210 Nicotine dependence, cigarettes, uncomplicated; F14.20 Cocaine dependence, uncomplicated; F11.20 Opioid dependence, uncomplicated; F15.20 Other stimulant dependence, uncomplicated; Z91.5 Personal history of self-harm; Z79.899 Other long term (current) drug therapy; Z88.0 Allergy status to penicillin; Z88.2 Allergy status to sulfonamides; Z88.8 Allergy status to other drugs, medicaments and biological substances